=== PATIENT | male | born 1970 | race American Indian/Alaskan Native ===

== ENCOUNTER 2017-10-19 15:58 | Outpatient (CLI) | payer OTHER | END 2017-10-19 15:59 | disposition home or self-care (01) | LOC: LABHHL 15:58 | PROVIDERS: ATTEND Internal Medicine Gastroenterology | DX: T81.4XXA Infection following a procedure, initial encounter (principal) | CPT/HCPCS: 87076; 87116; 87186 ==

== ENCOUNTER 2018-05-21 18:21 | Emergency (ER) | payer OTHER ==
[2018-05-22] MEDS ORDERED: MOTRIN PO ONE (00:39)
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
--- NOTE | 2018-05-22 01:14 | XRay Report ---
FINAL REPORT EXAM: XR RIBS UNI W PA CHEST 3+V LT [place]ORY: [place] with [place] and pain with deep breath TECHNIQUE: Four views of the left ribs were obtained along with AP of the chest. FINDINGS: There is no evidence of acute displaced rib fracture. The lungs are clear. Pleural fluid is not seen. The heart size is normal. The lungs are not congested. IMPRESSION: No evidence of acute displaced left-sided rib fracture. No acute process in the chest.
[2018-05-22 02:47] VITALS: BP 151/94
== END 2018-05-22 01:35 | disposition home or self-care (01) ==
LOC: ED 18:21
DX: S39.012A Strain of muscle, fascia and tendon of lower back, initial encounter (principal); S16.1XXA Strain of muscle, fascia and tendon at neck level, initial encounter; R07.9 Chest pain, unspecified; I10 Essential (primary) hypertension; E11.9 Type 2 diabetes mellitus without complications; V89.2XXA Person injured in unspecified motor-vehicle accident, traffic, initial encounter; Y93.89 Activity, other specified; Y92.89 Other specified places as the place of occurrence of the external cause; Y99.8 Other external cause status
CPT/HCPCS: 99283